=== PATIENT | male | born 1955 | race African-American/Black ===

== ENCOUNTER 2017-05-05 11:04 | Emergency (ER) | payer SELFPAY ==
[2017-05-05] MEDS ORDERED: Fluorescein Opthalmic Strip ONE (12:13)
[2017-05-05] MEDS ORDERED: Proparacaine 0.5% Opth 15 ML BOT ONE (12:14)
== END 2017-05-05 13:14 | disposition home or self-care (01) ==
LOC: EDBD 11:04 → ERS 11:04
DX: S05.02XA Injury of conjunctiva and corneal abrasion without foreign body, left eye, initial encounter (principal); Z79.899 Other long term (current) drug therapy; W22.8XXA Striking against or struck by other objects, initial encounter
CPT/HCPCS: 99283

== ENCOUNTER 2020-07-24 20:23 | Emergency (ER) | payer MEDICARE, SELFPAY ==
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
== END 2020-07-24 21:20 | disposition home or self-care (01) ==
LOC: ERS 20:23
DX: S20.211A Contusion of right front wall of thorax, initial encounter (principal); I10 Essential (primary) hypertension; V43.52XA Car driver injured in collision with other type car in traffic accident, initial encounter; Z79.899 Other long term (current) drug therapy
CPT/HCPCS: 71045; 93005

== ENCOUNTER 2022-01-12 14:48 | Emergency (ER) | payer MEDICARE | END 2022-01-12 17:13 | disposition home or self-care (01) | LOC: ERS 14:48 | DX: S90.32XA Contusion of left foot, initial encounter (principal); S90.31XA Contusion of right foot, initial encounter; I10 Essential (primary) hypertension; W20.8XXA Other cause of strike by thrown, projected or falling object, initial encounter; Z79.82 Long term (current) use of aspirin; Z79.899 Other long term (current) drug therapy ==

== ENCOUNTER 2025-07-21 11:47 | Emergency (ER) | payer OTHER, MEDICARE | END 2025-07-21 13:58 | disposition home or self-care (01) | LOC: ERS 11:47 | DX: S40.011A Contusion of right shoulder, initial encounter (principal); I10 Essential (primary) hypertension; V49.3XXA Car occupant (driver) (passenger) injured in unspecified nontraffic accident, initial encounter | CPT/HCPCS: 99283 ==